=== PATIENT | female | born 1935 | race Caucasian/White ===

== ENCOUNTER 2018-07-19 11:54 | Observation (INO) | payer MEDICARE ==
[2018-07-19] MEDS ORDERED: ceFAZolin VIAL 1 GM in NS *SYRINGE * * 10 ML ONE (13:00)
[2018-07-19] MEDS ORDERED: ceFAZolin 2 GM PREMIX (*) 2 GM/50 ML BAG IVPB ONE (13:00)
[2018-07-19] MEDS ORDERED: Naloxone* 0.4 MG/ML 1 ML VIAL ONE (13:19)
[2018-07-19] MEDS ORDERED: Midazolam* 1 MG/ML 5 ML VIAL (5 MG) ONE (13:19)
[2018-07-19] MEDS ORDERED: Flumazenil* 0.1 MG/ML 5 ML MDV ONE (13:19)
[2018-07-19] MEDS ORDERED: Iohexol 300* (CONTRAST) 10 ML SDV ONE (13:19)
[2018-07-19] MEDS ORDERED: fentaNYL* 50 MCG/ML 2 ML VIAL (100 MCG VIAL) ONE (13:19)
[2018-07-19] MEDS ORDERED: Lidocaine 1%* 5 ML VIAL ONE (13:25)
[2018-07-19] MEDS ORDERED: Acetaminophen TAB* 325 MG PO PRN (14:55)
[2018-07-19] MEDS ORDERED: oxyCODONE TAB* 5 MG TAB PO PRN (16:27)
--- NOTE | 2018-07-19 18:03 | RAD ---
Indication: Status post pacemaker placement. Single frontal view of the chest performed at 1714 hours was reviewed. Comparison is made with previous exam dated October 16, 2009. No mediastinal shift is noted. Heart is of normal size and configuration. Lung rodriguez appear clear. Pacemaker leads are in place. No pneumothorax is noted. IMPRESSION: NO ACTIVE CARDIOPULMONARY DISEASE IS NOTED.
[2018-07-19] MEDS: ceFAZolin 1 GM VIAL(*) 1 GM in NS 0.9% 50 ML* 50 ML IVPB SCH (22:20)
[2018-07-19] MEDS: Memantine TAB* 10 MG PO SCH (22:20)
--- NOTE | 2018-07-20 01:31 | OP ---
DATE OF OPERATION: 07/19/18 - ROOM #444 DATE OF : 35 SURGEON: Jason Calvin MD ANESTHESIA: Local anesthesia with conscious sedation. PRE-OP DIAGNOSES: 1. Sick sinus syndrome. 2. Right ventricular lead fracture. 3. Pacer generator greater than 9 years old. POST-OP DIAGNOSES: 1. Sick sinus syndrome. 2. Right ventricular lead fracture. 3. Pacer generator greater than 9 years old. OPERATIVE PROCEDURE: Right ventricular lead revision, pacemaker generator change, dual chamber. ESTIMATED BLOOD LOSS: Nil. COMPLICATIONS: None. INDICATIONS: The patient is an 83-year-old female who had original pacemaker implantation in 2000. She had a generator change in 2008. The patient is followed closely by my office. She was found to have a right ventricular lead fracture. Right ventricular lead revision was recommended. Because the generator was greater than 9 years old, generator change was recommended. DESCRIPTION OF PROCEDURE: The patient was brought to the procedure room in a fasting state. Informed consent had been obtained prior to the procedure. All labs were reviewed. A venogram of the left arm showed that there was patency of the axillary and innominate veins. Under ultrasound guidance, the axillary vein was entered by a modified Seldinger technique and a guidewire was placed. A 4 cm incision was made at the superior aspect of the pacemaker, blunt dissection was carried on the fiber sheath. Careful dissection of the sheath was done to avoid damage to the existing wires. The pacemaker was removed from the pocket, it was detached from the atrioventricular lead. The atrial lead was functioning normally. Ventricular lead had occasional high impendence and occasional noise from the lead fracture. The ventricular lead was capped. The ventricular lead is a [employer] model 4474. Over the guidewire, a 7- Greek sheath introducer was placed, through which a right ventricular lead was advanced to the RV apex. The right ventricular lead is [employer] model 2088TC, serial number [id number] and an R-wave sensitive of 7.8, impendence 603 ohms, threshold 0.6 volts at 0.4 msec. The pocket was flushed with antibiotic infused normal saline. A new generator was attached to the atrial and ventricular leads. The new generator is a [employer] [facility] model EJ2676, serial number [id number]. The device was placed in the pocket. The surgical incision was closed in 3 layers. The patient was returned to the holding area in stable condition. [id number]/[facility] #: [id number] DIANE
[2018-07-20] MEDS: ceFAZolin 1 GM VIAL(*) 1 GM in NS 0.9% 50 ML* 50 ML IVPB SCH (05:44)
[2018-07-20] MEDS: Memantine TAB* 10 MG PO SCH (09:49)
--- NOTE | 2018-07-20 11:34 | RAD ---
HISTORY: S/P Device Implant COMPARISONS: July 19, 2018, October 16, 2009 VIEWS: 4: Frontal dual-energy and lateral views of the chest. FINDINGS: CARDIOMEDIASTINAL SILHOUETTE: The cardiomediastinal silhouette is normal. JOSÉ ANTONIO: The joés antonio are normal. PLEURA: The costophrenic angles are sharp. No pleural abnormalities are noted. LUNG PARENCHYMA: There is hyperinflation with flattening of the diaphragm and expansion of the AP diameter of the chest. There is minimal linear opacification of the left lower lung localizing to the lingula. ABDOMEN: The upper abdomen is clear. There is no subphrenic gas. BONES AND SOFT TISSUES: Left-sided pacemaker is noted. OTHER: None. IMPRESSION: MINIMAL LINEAR ATELECTASIS OF THE LINGULA.
[2018-07-20 12:47] VITALS: BP 108/57
--- NOTE | 2018-07-20 13:40 | DS ---
CC: Radha Rosa MD * DISCHARGE SUMMARY: DATE OF ADMISSION: 07/19/18 DATE OF DISCHARGE: 07/20/18 INDICATION FOR ADMISSION: Right ventricular lead revision, generator change of her pacemaker. Please see my admission history and physical for details of the patient's presentation. HOSPITAL COURSE: The patient is an 83-year-old female with a history of sick sinus syndrome, history of pacemaker implantation in 2000, she is followed closely by my office. Recent interrogation of her pacemaker showed a lead fracture in the right ventricular lead. SUMMARY OF HOSPITAL COURSE: The patient was admitted to the hospital. She went to the operating room, had a new right ventricular lead placed and a new generator to her pacemaker. The patient tolerated the procedure well and no complications. The patient was observed overnight. She had no complications this morning. The patient had an interrogation of her pacemaker. Her pacemaker is [employer] model 2272, it showed normal function of the atrial and ventricular leads, atrial lead had an impedance of 350 ohms. P-wave sensitivity of 3.1, atrial capture of 0.75 volts at 0.4 msec. The right ventricular lead had an impedance of 590 ohms, R- wave sensitivity of 7, R-wave capture of 0.5 volts at 0.4 msec. The patient is programmed to DDDR, paced rate at 60 beats per minute. PHYSICAL EXAMINATION: Vital signs are stable. Lungs are clear to auscultation. Cardiac Exam: S1, S2 without any murmurs, rubs, or gallops. Pacemaker site is stable. There is no ecchymosis. There is no hematoma. There is no erythema. The dressing was changed. DISCHARGE MEDICATIONS: 1. Memantine 10 mg b.i.d. 2. Aricept 10 mg a day. 3. Keflex 250 mg 3 times a day for 3 days. FOLLOWUP: The patient will follow up in my office in 1 week. [id number]/[facility] #: [id number] [facility]
== END 2018-07-20 15:19 | disposition home or self-care (01) ==
LOC: CHICATH 11:54 → MEDTELE 14:55
PROVIDERS: ADMIT Specialist; ATTEND Specialist
DX: I49.5 Sick sinus syndrome (principal); T82.110A Breakdown (mechanical) of cardiac electrode, initial encounter; Z45.010 Encounter for checking and testing of cardiac pacemaker pulse generator [battery]; Z95.0 Presence of cardiac pacemaker
CPT/HCPCS: 33216; 33228; 71045; 71046; 88300; 93005; 96374; 99156; 99157; A9270-GY; C1785; C1898; G0378; J0690; J2250; J2310; J3010

== ENCOUNTER 2018-11-17 10:30 | Emergency (ER) | payer MEDICARE ==
[2018-11-17 10:43] VITALS: BP 188/79
--- NOTE | 2018-11-17 11:13 | UC ---
Palpitation/Dysrhythmia HP - HPI Summary HPI Summary: PATIENT WAS AT THE DENTIST OFFICE THIS MORNING HAVING A CROWN PLACED WHEN SHE SUDDENLY DEVELOPED A FEELING OF UNEASINESS ASSOCIATED WITH HEART PALPITATIONS. PATIENT HAS A PACEMAKER THAT WAS PLACED EARLIER THIS YEAR FOR WHAT SOUNDS LIKE SICK SINUS SYNDROME. SHE REPORTS SOME ASSOCIATED NAUSEA AND DIZZINESS. NO FEVER. - History of Current Complaint Chief Complaint: UCCardiac Stated Complaint: HEART PALPAPATIONS Time Seen by Provider: 11/17/18 10:31 Hx Obtained From: Patient, Family/Teen Counselor - DAUGHTER AND S-I-L Onset/Duration: Sudden Onset, Lasting Minutes, Resolved Timing: Constant Severity Initially: Moderate Severity Currently: None Pain Intensity: 0 Pain Scale Used: 0-10 Numeric Character: Pounding Aggravating Factor(s): Nothing Alleviating Factor(s): Other - SPONTANEOUS RESOLUTION Associated Signs & Symptoms: Positive: Lightheadedness, Dizzy, Nausea. Negative : Chest Pain, Shortness of Breath, Diaphoresis - Allergy/Home Medications Allergies/Adverse Reactions: Allergies Allergy/AdvReac Type Severity Reaction Status Date / Time codeine Allergy Unknown Verified 07/19/18 12:52 Reaction Details PMH/Surg Hx/FS Hx/Imm Hx Cardiovascular History: Cardiac Disease - PACEMAKER, Hypertension Other Cancer History: CERVICAL CANCER - Surgical History Surgical History: None - Social History Alcohol Use: None Substance Use Type: None Smoking Status (MU): Never Smoked Tobacco Review of Systems All Other Systems Reviewed And Are Negative: Yes Constitutional: Positive: Fatigue ENT: Positive: Negative Respiratory: Positive: Negative Cardiovascular: Positive: Palpitations Gastrointestinal: Positive: Nausea Neurological: Positive: Other - DIZZY Physical Exam Triage Information Reviewed: Yes Appearance: Well-Appearing, No Pain Distress, Well-Nourished Vital Signs: Initial Vital Signs Temp 98.0 F 11/17/18 10:38 Pulse 60 11/17/18 10:38 Resp 18 11/17/18 10:38 BP 188/79 11/17/18 10:38 Pulse Ox 98 11/17/18 10:38 Vital Signs Reviewed: Yes Eyes: Positive: Conjunctiva Clear ENT: Positive: Hearing grossly normal Neck: Positive: Supple, Nontender, No Lymphadenopathy Respiratory Exam: Normal Cardiovascular Exam: Normal Abdomen Description: Positive: Soft Musculoskeletal: Positive: No Edema Neurological: Positive: Alert Psychological: Positive: Age Appropriate Behavior Skin: Negative: Rashes Diagnostics - EKG Cardiac Rate: NL - 60BPM ATRIAL PACED Ectopy: None ST Segment: Normal Palpitations Course/Dx - Course Course Of Treatment: 83-YEAR-OLD PATIENT WITH A HEART ARRHYTHMIA AND A PACEMAKER PRESENTS WITH SUDDEN ONSET OF PALPITATIONS WHILE AT THE DENTIST. ALTHOUGH SHE REPORTS SHE FEELS WELL AT TIME OF EXAM FURTHER EVALUATION IS WARRANTED IN THE ED. PT OFFERED TRANSPORT TO THE ED BY AMBULANCE BUT DECLINES. ADVISED THAT BY NOT TRAVELING IN A MONITORED SETTING SHE COULD BE RISKING WORSENING OF HER CONDITION THAT COULD POSE A THREAT TO HER LIFE, HEALTH AND MEDICAL SAFETY. SHE VERBALIZES UNDERSTANDING AND CONTINUES TO DECLINE AMBULANCE TRANSFER. - Differential Dx/Diagnosis Provider Diagnosis: Heart palpitations Discharge - Sign-Out/Discharge Documenting (check all that apply): Patient Departure All imaging exams completed and their final reports reviewed: No Studies - Discharge Plan Condition: Stable Disposition: TRANS HIGHER LVL OF CARE FAC Patient Education Materials: Heart Palpitations (ED) Referrals: Radha Rosa MD [Primary Care Provider] - If Needed Additional Instructions: GO DIRECTLY TO THE [facility] [place] [facility] FROM HERE FOR FURTHER EVALUATION. YOU HAVE DECLINED TRANSFER TO THE ED BY AMBULANCE. BE ADVISED THAT BY NOT TRAVELING IN A MONITORED SETTING YOU COULD BE RISKING WORSENING OF YOUR CONDITION THAT COULD POSE A THREAT TO YOUR LIFE, HEALTH AND MEDICAL SAFETY. - Billing Disposition and Condition Condition: STABLE Disposition: Trans Higher Lvl of Care Fac
== END 2018-11-17 11:10 | disposition short-term general hospital (02) ==
LOC: UCEAST 10:30
DX: R00.2 Palpitations (principal); Z95.0 Presence of cardiac pacemaker; Z88.5 Allergy status to narcotic agent
CPT/HCPCS: 99212; G0463

== ENCOUNTER 2018-11-17 11:36 | Emergency (ER) | payer MEDICARE ==
--- NOTE | 2018-11-17 12:04 | ED ---
HPI Cardiac - HPI Summary HPI Summary: Patient is a 83 y/o F presenting to ED with palpitations onsetting earlier today while getting a crown placed. Patient's daughter is present in the room. Patient notes that while she was getting the crown placed, she began to experience some discomfort from the procedure and then developed palpitations. She also reports some dizziness and nausea. No chest pain, no back pain, UE pain reported. Fever, vomiting, diarrhea, and decreased appetite are denied. In the room, patient states she feels better, Sx have resolved. She notes that she had breakfast this morning. PMHx of Alzheimer's, pacemaker and sinus sick syndrome. Kiln Worker is Dr. Calvin, went in for an appointment with him last week, everything was reported to be normal at this time. Patient lives at [place]. Fever, chills, erythema of eyes, sore throat, chest pain, SOB, cough, abdominal pain, vomiting, dysuria, hematuria, myalgia, edema, rash are not reported. On triage, pain is rated 0/10, nothing is noted to aggravate/alleviate Sx. Home medications and allergies are reviewed. - History of Current Complaint Chief Complaint: EDDysrhythmPalp Stated Complaint: HEART PALPATATIONS Time Seen by Provider: 11/17/18 11:52 Hx Obtained From: Patient Onset/Duration: Started Hours Ago, Resolved Timing: Constant Current Severity: None Pain Intensity: 0 Pain Scale Used: 0-10 Numeric - 0/10 Chest Pain Radiates: No Character: Other: - palpitations Aggravating Factor(s): Nothing Alleviating Factor(s): Nothing Associated Signs and Symptoms: Positive: Dizziness, Nausea, Palpitations, Other : - no erythema of eyes, sore throat, dysuria, hematuria, myalgia, rash reported. Negative: Chest Pain, Shortness of Breath, Swelling, Fever, Chills, Cough, Back Pain, Abdominal Pain, Vomiting, Edema - Additional Pertinent History Primary Care Physician: [id number] - Allergy/Home Medications Allergies/Adverse Reactions: Allergies Allergy/AdvReac Type Severity Reaction Status Date / Time codeine Allergy Unknown Verified 11/17/18 12:02 Reaction Details PMH/Surg Hx/FS Hx/Imm Hx Endocrine/Hematology History: Denies: Hx Diabetes, Hx Thyroid Disease Cardiovascular History: Reports: Hx Hypercholesterolemia, Hx Hypertension, Hx Pacemaker/ICD, Other Cardiovascular Problems/Disorders - sinus sick syndrome Respiratory History: Denies: Hx Asthma, Hx Chronic Obstructive Pulmonary Disease (COPD) GI History: Reports: Hx Gastroesophageal Reflux Disease Denies: Hx Ulcer Musculoskeletal History: Reports: Other Musculoskeletal History - osteoarthritis Sensory History: Reports: Hx Contacts or Glasses Denies: Hx Hearing Aid Opthamlomology History: Reports: Hx Contacts or Glasses - Cancer History Cancer Type, Location and Year: cervical Infectious Disease History: No Infectious Disease History: Reports: Hx Shingles Denies: Hx Clostridium Difficile, Hx Hepatitis, Hx Human Immunodeficiency Virus (HIV), Hx of Known/Suspected MRSA, Hx Tuberculosis, Traveled Outside the [place] in Last 30 Days - Family History Known Family History: Negative: Hypertension, Diabetes - Social History Alcohol Use: None Substance Use Type: Reports: None Smoking Status (MU): Never Smoked Tobacco Review of Systems Negative: Fever, Chills Negative: Erythema Negative: Sore Throat Positive: Palpitations. Negative: Chest Pain Negative: Shortness Of Breath, Cough Gastrointestinal: Other - NEGATIVE - DECREASED APPETITE Positive: Nausea. Negative: Abdominal Pain, Vomiting, Diarrhea Negative: dysuria, hematuria Musculoskeletal: Other - NEGATIVE - BACK PAIN, UE PAIN Negative: Myalgia, Edema Negative: Rash Neurological: Other - POSITIVE - DIZZINESS All Other Systems Reviewed And Are Negative: Yes Physical Exam - Summary Physical Exam Summary: Constitutional: Well-developed, Well-nourished, Alert. (-) Distressed Skin: Warm, Dry HENT: Normocephalic; Atraumatic Eyes: Conjunctiva normal Neck: Musculoskeletal ROM normal neck. (-) JVD, (-) Stridor, (-) Tracheal deviation Cardio: Rhythm regular, rate normal, Heart sounds normal; Intact distal pulses; The pedal pulses are 2+ and symmetric. Radial pulses are 2+ and symmetric. (-) Murmur Pulmonary/Chest wall: Effort normal. (-) Respiratory distress, (-) Wheezes, (-) Rales Abd: Soft, (-) epigastric tenderness, (-) Distension, (-) Guarding, (-) Rebound Musculoskeletal: (-) Edema Lymph: (-) Cervical adenopathy Neuro: Alert, Oriented x3 Psych: Mood and affect Normal Triage Information Reviewed: Yes Vital Signs On Initial Exam: Initial Vitals Temp Pulse Resp BP Pulse Ox 97.1 F 61 18 152/79 98 11/17/18 11:36 11/17/18 11:36 11/17/18 11:36 11/17/18 11:36 11/17/18 11:36 Vital Signs Reviewed: Yes Diagnostics - Vital Signs Vital Signs Temp Pulse Resp BP Pulse Ox 11/17/18 11:36 97.1 F 61 18 152/79 98 - Laboratory Result Diagrams: 11/17/18 12:09 11/17/18 12:09 Lab Statement: Any lab studies that have been ordered have been reviewed, and results considered in the medical decision making process. - Radiology CXR Radiology Interpretation Completed By: Radiologist Summary of Radiographic Findings: CXR IMPRESSION: Hyperinflated lung rodriguez. Pacemaker leads in place. THIS REPORT WAS REVIEWED BY ED PHYSICIAN. - EKG 1220 Cardiac Rate: Other Rate - atrial-paced rhythm with rate of 60 BPM Summary of EKG Findings: EKG showed atrial-paced rhythm with rate of 60 BPM, no STEMI. Re-Evaluation - Re-Evaluation First Eval Re-Evaluation Time: 16:11 Comment: Results of labs and tests discussed with patient, she will be discharged to home and follow up with PCP and bedspread cutter hand. Patient is agreeable with this. Disposition - Course Course Of Treatment: Patient is a 83 y/o F presenting to ED with palpitations onsetting earlier today while getting a crown placed. Patient's daughter is present in the room. Patient notes that while she was getting the crown placed, she began to experience some discomfort from the procedure and then developed palpitations. She also reports some dizziness and nausea. No chest pain, no back pain, UE pain reported. Fever, vomiting, diarrhea, and decreased appetite are denied. In the room, patient states she feels better, Sx have resolved. She notes that she had breakfast this morning. PMHx of Alzheimer's, pacemaker and sinus sick syndrome. Kiln Worker is Dr. Calvin, went in for an appointment with him last week, everything was reported to be normal at this time. Patient lives at [place]. Physical exam is unremarkable. EKG showed atrial-paced rhythm with rate of 60 BPM, no STEMI. CXR IMPRESSION: Hyperinflated lung rodriguez. Pacemaker leads in place. Labs showed BUN/creatinine 22.7, total protein 6.3, TSH 1.06. First trop was 0.04, second was 0.04. Troponins are stable. Results of labs and tests discussed with patient, she will be discharged to home and follow up with PCP and bedspread cutter hand. Patient is agreeable with this. - Diagnoses Provider Diagnoses: Heart palpitations, Vagal reaction Discharge - Sign-Out/Discharge Documenting (check all that apply): Patient Departure - discharge - Discharge Plan Condition: Stable Disposition: HOME Patient Education Materials: Heart Palpitations (ED) Referrals: Radha Rosa MD [Primary Care Provider] - 2 Days Jason Calvin MD [Medical Doctor] - 2 Days Additional Instructions: RETURN TO THE EMERGENCY DEPARTMENT FOR CHANGING OR WORSENING SYMPTOMS. FOLLOW UP WITH YOUR MOLD SETTER AND PRIMARY CARE PHYSICIAN IN 2 DAYS. - Attestation Statements Document Initiated by Scribe: Yes Documenting Scribe: JEREMIAS ELDER Provider For Whom Scribe is Documenting (Include Credential): SEVERO LOPEZ MD Scribe Attestation: JEREMIAS Hallman , scribed for SEVERO LOPEZ MD on 11/17/18 at 1712. Status of Scribe Document: Ready
[2018-11-17 12:24] LABS: ABS Basophils 0.1 10^3/ul (0-0.2); ABS Eosinophils 0.1 10^3/ul (0-0.6); ABS Lymphocytes 1.4 10^3/ul (1.0-4.8); ABS Monocytes 0.5 10^3/ul (0-0.8); ABS Neutrophils 6.5 10^3/ul (1.5-7.7); ABS Nucleated RBC 0 10^3/ul; Eosinophil % 0.7 %; Hematocrit 42 % (35-47); Lymphocyte % 16.8 %; Mean Corpuscular HGB Conc 33 g/dl (31-36); Mean Corpuscular Hemoglobin 30 pg (27-31); Mean Corpuscular Volume 89 fL (80-97); Mean Platelet Volume 8.9 fL (7.4-10.4); Nucleated Red Blood Cells % 0; Platelet Count 270 10^3/ul (150-450); Red Blood Count 4.74 10^6/ul (4.00-5.40); Red Cell Distribution Width 14 % (10.5-15); White Blood Count 8.5 10^3/ul (3.5-10.8)
[2018-11-17 12:43] LABS: Albumin 3.9 g/dL (3.2-5.2); Albumin/Globulin Ratio 1.6 (1-3); BUN/Creatinine Ratio 22.7 (8-20); Calcium 9.4 mg/dL (8.6-10.3); EGFR Non-African American 73.8 (>60); Globulin 2.4 g/dL (2-4); Magnesium 2.1 mg/dL (1.9-2.7); Potassium 3.8 mmol/L (3.5-5.0); Total Bilirubin 0.4 mg/dL (0.2-1.0); Total Protein 6.3 g/dL (6.4-8.9)
[2018-11-17 13:16] LABS: TSH (Thyroid Stimulating Horm) 1.06 mcIU/mL (0.34-5.60)
[2018-11-17 16:10] VITALS: BP 158/85
== END 2018-11-17 16:20 | disposition home or self-care (01) ==
LOC: ED 11:36
DX: R00.2 Palpitations (principal); R55 Syncope and collapse; E78.00 Pure hypercholesterolemia, unspecified; I10 Essential (primary) hypertension; K21.9 Gastro-esophageal reflux disease without esophagitis; I49.5 Sick sinus syndrome; Z88.5 Allergy status to narcotic agent; Z95.0 Presence of cardiac pacemaker
CPT/HCPCS: 36415; 71046; 80053; 83605; 83735; 84443; 84484; 85025; 93005; 99283

== ENCOUNTER 2021-08-11 17:51 | Observation (INO) ==
[2021-08-11] MEDS ORDERED: NS 0.9% 1000 ml BAG 1,000 ML IV ONE (22:33)
[2021-08-11 23:15] LABS: ABS Basophils 0.1 10^3/ul (0-0.2); ABS Lymphocytes 2.6 10^3/ul (1.0-4.8); ABS Monocytes 1.2 10^3/ul (0-0.8); ABS Neutrophils 13.9 10^3/ul (1.5-7.7); Eosinophil % 0.1 %; Hematocrit 42 % (35-47); Hemoglobin 14.1 g/dL (12.0-16.0); Lymphocyte % 14.4 %; Mean Corpuscular HGB Conc 33 g/dL (31-36); Mean Corpuscular Hemoglobin 30 pg (27-31); Mean Corpuscular Volume 90 fL (80-97); Mean Platelet Volume 9.5 fL (7.4-10.4); Platelet Count 291 10^3/uL (150-450); Red Blood Count 4.71 10^6 /uL (3.70-4.87); Red Cell Distribution Width 14 % (10-15); White Blood Count 17.8 10^3/uL (3.5-10.8)
[2021-08-11 23:32] LABS: ALT 13 U/L (7-52); AST 17 U/L (13-39); Albumin 3.9 g/dL (3.2-5.2); Albumin/Globulin Ratio 1.8 (1-3); Alkaline Phosphatase 75 U/L (35-149); Anion Gap 10 mmol/L (2-11); Blood Urea Nitrogen 13 mg/dL (6-24); C Reactive Protein < 1.00 mg/L (<8.01); CO2 Carbon Dioxide 26 mmol/L (22-32); Calcium 9.5 mg/dL (8.6-10.3); Chloride 103 mmol/L (101-111); EGFR African American 73.7 (>60); EGFR Non-African American 60.9 (>60); Globulin 2.2 g/dL (2-4); Glucose 121 mg/dL (70-100); Potassium 3.5 mmol/L (3.5-5.0); Sodium 139 mmol/L (135-145); Total Protein 6.1 g/dL (6.4-8.9)
[2021-08-11 23:33] LABS: Troponin I 0.01 ng/mL (<0.03)
[2021-08-12] MEDS ORDERED: NS 0.9% 1000 ml BAG 1,000 ML IV ONE (00:38)
[2021-08-12] MEDS ORDERED: Lactated Ringers 1000 ml BAG 1,000 ML IV ONE (01:19)
[2021-08-12 03:10] LABS: Rapid COVID-19 Molecular Undetected (Undetected)
[2021-08-12 05:17] LABS: ABS Monocytes 0.8 10^3/ul (0-0.8); ABS Neutrophils 10.3 10^3/ul (1.5-7.7); Eosinophil % 0.1 %; Hematocrit 36 % (35-47); Hemoglobin 12.1 g/dL (12.0-16.0); Lymphocyte % 8.5 %; Mean Corpuscular HGB Conc 33 g/dL (31-36); Mean Corpuscular Hemoglobin 30 pg (27-31); Mean Corpuscular Volume 90 fL (80-97); Mean Platelet Volume 9.5 fL (7.4-10.4); Platelet Count 228 10^3/uL (150-450); Red Blood Count 4.03 10^6 /uL (3.70-4.87); Red Cell Distribution Width 14 % (10-15); White Blood Count 12.2 10^3/uL (3.5-10.8)
[2021-08-12 05:26] LABS: Activated Partial Thrombo Time 29.2 seconds (26.0-38.0); INR 1.14 (0.86-1.15)
[2021-08-12 05:27] LABS: Calcium 8.2 mg/dL (8.6-10.3); EGFR African American 97.6 (>60); EGFR Non-African American 80.7 (>60); Potassium 3.6 mmol/L (3.5-5.0)
[2021-08-12] MEDS: Heparin 5000 UNITS/ML 1 mL VIAL SUBCUT SCH ×2 (06:13→17:26)
[2021-08-12 13:48] LABS: Urine Appearance Cloudy; Urine Bilirubin Negative (Negative); Urine Blood Negative (Negative); Urine Color Amber; Urine Glucose Negative (Negative); Urine Ketones Trace (Negative); Urine Nitrite Negative (Negative); Urine Protein 1+(30 mg/dL) (Negative); Urine Urobilinogen Positive (Negative)
[2021-08-12 13:51] LABS: Urine Bacteria Absent (Absent); Urine Red Blood Cell 2+(6-10/hpf) (Absent); Urine Squamous Epithelial Cell Present (Absent); Urine White Blood Cell 3+(>20/hpf) (Absent)
[2021-08-12] MEDS: cefTRIAXone 1 gm/50 mL NS BAG 1 GM/50 ML BAG IVPB SCH (21:54)
[2021-08-13] MEDS: Heparin 5000 UNITS/ML 1 mL VIAL SUBCUT SCH ×4 (00:33→21:53)
[2021-08-13] MEDS: cefTRIAXone 1 gm/50 mL NS BAG 1 GM/50 ML BAG IVPB SCH (20:06)
[2021-08-14] MEDS: Heparin 5000 UNITS/ML 1 mL VIAL SUBCUT SCH ×2 (05:21→13:32)
[2021-08-14 07:44] LABS: ABS Lymphocytes 0.9 10^3/ul (1.0-4.8); ABS Monocytes 0.7 10^3/ul (0-0.8); ABS Neutrophils 6.9 10^3/ul (1.5-7.7); Eosinophil % 0.3 %; Hematocrit 34 % (35-47); Hemoglobin 11.7 g/dL (12.0-16.0); Lymphocyte % 10.2 %; Mean Corpuscular HGB Conc 34 g/dL (31-36); Mean Corpuscular Hemoglobin 31 pg (27-31); Mean Corpuscular Volume 90 fL (80-97); Platelet Count 234 10^3/uL (150-450); Red Blood Count 3.83 10^6 /uL (3.70-4.87); Red Cell Distribution Width 14 % (10-15); White Blood Count 8.5 10^3/uL (3.5-10.8)
[2021-08-14 07:54] LABS: Calcium 8.4 mg/dL (8.6-10.3); EGFR African American 106.5 (>60); Potassium 2.8 mmol/L (3.5-5.0)
[2021-08-14 12:06] VITALS: BP 112/40
== END 2021-08-14 15:20 | disposition home or self-care (01) ==
LOC: ED 17:51 → MED 17:51 → SUATTDRO 08-12 01:16 → MED 08-12 02:50
PROVIDERS: ADMIT Internal Medicine; ATTEND Internal Medicine